=== PATIENT | female | born 1950 | race Caucasian/White ===

== ENCOUNTER 2022-07-25 09:12 | Day surgery (SDC) | payer MEDICARE ==
[2022-07-22 11:20] VITALS: BMI 34.9
[2022-07-25] MEDS ORDERED: fentaNYL 50 mcg/mL 1 mL Vial ONE (10:15)
[2022-07-25] MEDS ORDERED: PROPOFOL 40 ML ONE (10:15)
== END 2022-07-25 11:55 | disposition home or self-care (01) ==
LOC: SDC 09:12
PROVIDERS: ATTEND Internal Medicine Cardiovascular Disease
PROC: B246ZZ4 Ultrasonography of Right and Left Heart, Transesophageal (ICD-10-PCS; principal; 2022-07-25)
DX: I51.89 Other ill-defined heart diseases (principal); I10 Essential (primary) hypertension; E78.5 Hyperlipidemia, unspecified; I87.2 Venous insufficiency (chronic) (peripheral); G47.30 Sleep apnea, unspecified; I34.0 Nonrheumatic mitral (valve) insufficiency; I48.20 Chronic atrial fibrillation, unspecified; E11.9 Type 2 diabetes mellitus without complications; E66.9 Obesity, unspecified; Z68.35 Body mass index [BMI] 35.0-35.9, adult; Z87.891 Personal history of nicotine dependence; Z79.01 Long term (current) use of anticoagulants; Z79.84 Long term (current) use of oral hypoglycemic drugs; Z79.899 Other long term (current) drug therapy; Z88.2 Allergy status to sulfonamides; Z88.8 Allergy status to other drugs, medicaments and biological substances
CPT/HCPCS: 93312; J3010; J2704